=== PATIENT | male | born 1990 | race African-American/Black ===

== ENCOUNTER 2017-08-06 12:21 | Emergency (ER) | payer SELFPAY | END 2017-08-06 13:25 | disposition home or self-care (01) | LOC: ERS 12:21 | DX: B35.3 Tinea pedis (principal); F17.210 Nicotine dependence, cigarettes, uncomplicated | CPT/HCPCS: 99283 ==

== ENCOUNTER 2018-08-10 11:19 | Emergency (ER) | payer OTHER, SELFPAY ==
--- NOTE | 2018-08-10 11:55 | RAD ---
RIGHT HAND 3 VIEWS: HISTORY: Right hand injury. FINDINGS: Joint spaces are preserved. No acute fracture or dislocation. IMPRESSION: No acute osseous abnormalities are demonstrated. POS: ERIC
--- NOTE | 2018-08-10 11:57 | RAD ---
RIGHT WRIST 3 VIEWS: HISTORY: Injury. COMPARISON: Right hand 07/06/2016. FINDINGS: No acute displaced fracture or malalignment. Mild positive ulnar variance may be positional. IMPRESSION: No acute fracture or malalignment. POS: ERIC
== END 2018-08-10 12:30 | disposition home or self-care (01) ==
LOC: ERS 11:19
DX: S63.91XA Sprain of unspecified part of right wrist and hand, initial encounter (principal); R20.2 Paresthesia of skin; F17.210 Nicotine dependence, cigarettes, uncomplicated; W22.8XXA Striking against or struck by other objects, initial encounter

== ENCOUNTER 2018-11-25 13:09 | Emergency (ER) | payer SELFPAY | END 2018-11-25 14:30 | disposition left against medical advice (07) | LOC: ERS 13:09 | DX: Z53.21 Procedure and treatment not carried out due to patient leaving prior to being seen by health care provider (principal) ==

== ENCOUNTER 2019-01-01 16:27 | Emergency (ER) | payer SELFPAY | END 2019-01-01 17:55 | disposition home or self-care (01) | LOC: ERS 16:27 | DX: J02.9 Acute pharyngitis, unspecified (principal); F17.210 Nicotine dependence, cigarettes, uncomplicated; I10 Essential (primary) hypertension | CPT/HCPCS: 87081; 87430; 99283 ==

== ENCOUNTER 2019-01-16 21:08 | Emergency (ER) | payer SELFPAY ==
[2019-01-16] MEDS ORDERED: Ketorolac Tromethamine 30 MG/ML VIAL ONE (22:18)
== END 2019-01-16 22:50 | disposition home or self-care (01) ==
LOC: ERS 21:08
DX: R10.9 Unspecified abdominal pain (principal); I10 Essential (primary) hypertension; F17.210 Nicotine dependence, cigarettes, uncomplicated; F31.9 Bipolar disorder, unspecified
CPT/HCPCS: 96372; J1885

== ENCOUNTER 2020-08-29 17:32 | Emergency (ER) | payer SELFPAY ==
[2020-08-29] MEDS ORDERED: Ibuprofen 800 MG TAB ONE (17:57)
== END 2020-08-29 18:04 | disposition home or self-care (01) ==
LOC: ERS 17:32
DX: K64.4 Residual hemorrhoidal skin tags (principal); I10 Essential (primary) hypertension; F17.210 Nicotine dependence, cigarettes, uncomplicated
CPT/HCPCS: 99283

== ENCOUNTER 2020-09-03 20:39 | Inpatient (IN) | payer OTHER, SELFPAY ==
[~2020-09-03 20:39] MED LIST: Iopamidol 370 76% 100 ML VIAL ONE
[2020-09-03] MEDS ORDERED: Clindamycin/D5W 900 mg/50 ml Premix Bag ONE (21:26)
[2020-09-03] MEDS ORDERED: Ketorolac Tromethamine 30 MG/ML VIAL ONE (21:26)
[2020-09-03 21:54] LABS: #Basophils 0.1 thou/uL (0.0-0.2); #Eosinphils 0.2 thou/uL (0.0-0.7); #Lymphocytes 2.4 thou/uL (1.20-3.40); #Monocytes 1.8 thou/uL (0.11-0.59); #Neutrophils 13.2 thou/uL (1.40-6.50); %Basophils 0.5 % (0.0-1.0); %Eosinophils 1.1 % (0.0-10.0); %Lymphocytes 13.5 % (21.0-51.0); %Monocytes 10.3 % (0.0-10.0); %Neutrophils 74.6 % (42.0-75.0); Hemoglobin 13.6 g/dL (14.0-18.0); Mean Corpuscular HGB CONC 32.4 g/dL (32.0-36.0); Mean Corpuscular Volume 92.6 fL (78.0-98.0); Mean Platelet Volume 7.1 fL (7.4-10.4); Platelet Count 494 thou/uL (130-400); RBC Distribution Width 12.5 % (11.5-14.5); Red Blood Cell (RBC) Count 4.53 mill/uL (4.70-6.10); White Blood Cell (WBC) Count 17.6 thou/uL (4.8-10.8)
--- NOTE | 2020-09-03 22:03 | CT ---
CT OF THE PELVIS WITH IV CONTRAST INDICATION: History of possible rectal abscess with complaints of bleeding in the rectal area and hem orrhoids COMPARISON: None FINDINGS: Pelvis: Small and large bowel: There is a mild amount retained stool within the visualized colon. Appendix:Normal Bladder: Normal. Rectal and perirectal soft tissues:There is a multiloculated, septated, peripherally enhancing hypode nse lesion involving the anterior and left anterior wall of the rectum, extending into the left and central aspect of the prostate suspicious for large rectal abscess with local extension. The lesion m easures 5.2 x 4.2 x 6.1 cm in its greatest AP, mediolateral and craniocaudad dimensions respectively. Reproductive structures: As above Free fluid in pelvis: There is mild free fluid in the pelvis. Lymphadenopathy pelvis: Few mildly prominent lymph nodes are seen within the presacral region and spring ng the left internal iliac vasculature. Largest is seen 19 series 4 measuring 6 mm. Osseous structures: No acute osseous abnormality. No destructive osteolytic or osteoblastic lesion i s identified. There is scattered degenerative and osteoarthritic changes. Soft tissues:Normal. IMPRESSION: 1. Multiloculated, septated, peripherally enhancing hypodense lesion involving the anterior left ante rior wall the rectum extending into the left and central aspect of the prostate suspicious for large rectal abscess with local extension. Surgical consultation is recommended. Malignancy is felt t o be less likely but is not entirely excluded. 2. A few mildly prominent lymph nodes within the presacral region and along the left internal iliac v asculature.
[2020-09-03 22:11] LABS: ALT (SGPT) 32 U/L (8-55); AST (SGOT) 24 U/L (5-34); Albumin 4.3 g/dL (3.5-5.0); Alkaline Phosphatase 111 U/L (40-110); Anion Gap 15 mmol/L (10-20); BUN (Urea Nitrogen) 11 mg/dL (8.9-20.6); Bilirubin, Total 0.2 mg/dL (0.2-1.2); Calc. Creatinine Clearance 0 mL/min (70-130); Calcium 9.9 mg/dL (7.8-10.44); Carbon Dioxide 28 mmol/L (22-29); Chloride 98 mmol/L (98-107); Estimated GFR-MDRD Greater than 90; Globulin 4.3 g/dL (2.4-3.5); Glucose 95 mg/dL (70-105); Protein, Total 8.6 g/dL (6.0-8.3); Sodium 137 mmol/L (136-145)
[2020-09-03] MEDS ORDERED: Piperacillin/Tazobactam 4.5 GM VIAL ONE (22:29)
[2020-09-03] MEDS ORDERED: metroNIDAZOLE 500 MG/100 ML BAG ONE (22:29)
[2020-09-03 22:54] LABS: Bilirubin Negative (Negative); Blood, Urine Negative (Negative); Clarity Clear (Clear); Glucose, Urine (Dipstick) Normal (Negative); Ketone, Urine Negative (Negative); Leukocyte 250 Leu/uL (Negative); Nitrite Negative (Negative); Protein, Urine (Dipstick) 10 mg/dL (Neg-Trace); Squamous Epithelial None Seen HPF (0-3); Urobilinogen Normal mg/dL (Less than 2); WBC/HPF Greater than 50 HPF (0-3); pH, Urine 7.5 (5.0-9.0)
[2020-09-03 23:00] LABS: Bacteria/HPF Rare-Few HPF (None Seen)
[2020-09-04] MEDS ORDERED: Ondansetron PF 4 MG/2 ML Vial IVP PRN (01:30)
[2020-09-04] MEDS ORDERED: Ondansetron ODT 4 MG TAB SL PRN (01:30)
[2020-09-04] MEDS: D5 1/2 NS w/20 mEq KCL 1,000 ML IV SCH ×2 (01:40→09:51)
[2020-09-04 01:46] VITALS: BMI 24.7
[2020-09-04] MEDS ORDERED: Senokot S 8.6-50 MG TAB PO PRN (03:12)
[2020-09-04] MEDS ORDERED: Bisacodyl 10 MG SUPP PR PRN (03:12)
[2020-09-04] MEDS ORDERED: Acetaminophen 325 MG TAB PO PRN (03:12)
[2020-09-04] MEDS ORDERED: Acetaminophen 650 MG Suppository PR PRN (03:12)
--- NOTE | 2020-09-04 03:42 | PDOC.HHP ---
Hospitalist HPI - History of Present Illness History of Present Illness: ADMISSION DATE: 09/04/2020 TIME OF ASSESSMENT: 0200 PRIMARY CARE PHYSICIAN: None CHIEF COMPLAINT: Rectal pain and bleeding HPI: Patient presents to the emergency department today with complaints of rectal pain and bleeding. The patient states everything started 2 weeks ago when he had significant straining while having a bowel movement after which he felt a small bulge in the rectum which he attributed to a hemorrhoid. Patient states that he felt discomfort when walking and had gone in for medical evaluation. He was told he had hemorrhoids and was prescribed topical medicine however patient was taken to [facility] straight from the doctor's office. He eventually saw the [facility] nurse while incarcerated and was prescribed hemorrhoid cream. Also given stool softeners which helped to lessen the pain when having a bowel movement. Patient reports having a bowel movement 1 day and feeling as if something popped which then caused immediate relief and he was able to walk is normal. He continued with stool softeners and daily cleansing of the perirectal area. He had been given mid pads with which he is well which he states helped significantly. Eventually he began to note purulent drainage on the pads. For the last week he has been unable to have a bowel movement and today he developed abdominal cramping. While sitting on the toilet today he felt a significant bulge in the rectal area after wiping. States he did not pas s any stool but had a significant amount of pain and a significant amount of blood. Since arriving to the emergency department his pain has improved. It was initially 7 out of 10 in severity and is now a 0 out of 10. He feels like the pressure has been relieved. Reports having fevers and chills since 4 to 5 days ago. All other review of systems are negative. ED COURSE: In the emergency department he underwent an EKG that showed a normal sinus rhythm. Laboratory studies done showed a white count of 17.6, hemoglobin 13.6, hematocrit 42, platelets 494, neutrophils 74.6% BUN 11, creatinine 1.03, GFR greater than 90, alk phos 111, LFTs normal. Lactic acid 1.5. Glucose 95 Urinalysis showed 250 leukocyte esterase, 4-6 red blood cells and greater than 50 white blood cells. Negative for bacteria and nitrites. CT imaging of the pelvis demonstrated a multiloculated septated peripherally enhancing hypodense lesion involving the anterior left wall of the rectum extending into the left and central aspect of the prostate suspicious for large rectal abscess with local extension. Malignancy felt to be less likely but not entirely excluded. Few mildly prominent lymph nodes within the presacral region and along the left internal iliac vasculature present. Patient was started on IV antibiotics with Zosyn, clindamycin and metronidazole. He received IV fluids and for his pain was given Toradol 30 mg IV x1. PAST MEDICAL HISTORY: 1. Chronic constipation PAST SURGICAL HISTORY: None. SOCIAL HISTORY: Previous smoker. Denies any heavy alcohol use or drug use. FAMILY HISTORY: Noncontributory ALLERGIES: No known drug allergy CURRENT MEDICATIONS: Ibuprofen as needed for pain - Exam General Appearance: NAD, awake alert General - other findings: Vital signs temp 98.2, HR 88, RR 18, O2 sat 98% on room air, BP 133/83 Eye: PERRL, anicteric sclera ENT: normocephalic atraumatic, moist mucosa ENT - other findings: poor dentition Neck: supple Heart: RRR, no murmur, no gallops, normal peripheral pulses Respiratory: CTAB, no wheezes, no rales, no ronchi, normal chest expansion Gastrointestinal: soft, non-tender, non-distended, normal bowel sounds, no guarding, no rigidity Gastrointestinal - other findings: Rectal area notable for purulent drainage Extremities: no edema Skin: normal turgor, no rashes Neurological: cranial nerve grossly intact, normal sensation to touch, no weakness Musculoskeletal: normal tone, normal strength, no muscle wasting Psychiatric: normal affect, normal behavior, A&O x 3 Hospitalist Results - Labs Result Diagrams: 09/03/20 21:26 09/03/20 21:26 Lab results: WBC 17.6 thou/uL (4.8-10.8) H 09/03/20 21: Hgb 13.6 g/dL (14.0-18.0) L 09/03/20 21: Hct 42.0 % (42.0-52.0) 09/03/20 21: MCV 92.6 fL (78.0-98.0) 09/03/20 21: Plt Count 494 thou/uL (130-400) H 09/03/20 21: Neutrophils % 74.6 % (42.0-75.0) 09/03/20 21:26 Sodium 137 mmol/L (136-145) 09/03/20 21:26 Potassium 4.0 mmol/L (3.5-5.1) 09/03/20 21:26 Chloride 98 mmol/L (98-107) 09/03/20 21:26 Carbon Dioxide 28 mmol/L (22-29) 09/03/20 21:26 BUN 11 mg/dL (8.9-20.6) 09/03/20 21:26 Creatinine 1.03 mg/dL (0.7-1.3) 09/03/20 21:26 Glucose 95 mg/dL (70-105) 09/03/20 21:26 Lactic Acid 1.5 mmol/L (0.5-2.2) 09/03/20 21: Calcium 9.9 mg/dL (7.8-10.44) 09/03/20 21:26 Total Bilirubin 0.2 mg/dL (0.2-1.2) 09/03/20 21:26 AST 24 U/L (5-34) 09/03/20 21:26 ALT 32 U/L (8-55) 09/03/20 21:26 Alkaline Phosphatase 111 U/L (40-110) H 09/03/20 21:26 Serum Total Protein 8.6 g/dL (6.0-8.3) H 09/03/20 21:26 Albumin 4.3 g/dL (3.5-5.0) 09/03/20 21:26 Urine Ketones Negative mg/dL (Negative) 09/03/20 22:07 Urine Blood Negative (Negative) 09/03/20 22:07 Urine Nitrite Negative (Negative) 09/03/20 22:07 Ur Leukocyte Esterase 250 Pallavi/uL (Negative) A 09/03/20 22:07 Urine RBC 4-6 HPF (0-3) A 09/03/20 22:07 Urine WBC Greater than 50 HPF (0-3) A 09/03/20 22:07 Ur Squamous Epith Cells None Seen HPF (0-3) 09/03/20 22:07 Urine Bacteria Rare-Few HPF (None Seen) 09/03/20 22:07 - Radiology Interpretation CT scan - pelvis Status: report reviewed by al Hospitalist H&P A/P - Problem (1) Rectal abscess Status: Acute (2) Rectal pain Code(s): K62.89 - OTHER SPECIFIED DISEASES OF ANUS AND RECTUM Status: Acute (3) Lower GI bleeding Code(s): K92.2 - GASTROINTESTINAL HEMORRHAGE, UNSPECIFIED Status: Acute (4) Abdominal cramping Code(s): R10.9 - UNSPECIFIED ABDOMINAL PAIN Status: Acute (5) Constipation, chronic Code(s): K59.09 - OTHER CONSTIPATION Status: Chronic - Plan Plan: Continue IV antibiotics. Monitor H/H. Continue stool softeners. General surgery consulted. NPO while awaiting surgical review. Continue Toradol PRN for pain. Repeat labs including lactic acid in the AM. GI Prophylaxis with famotidine. DVT Prophylaxis with mechanical SCDs. CODE STATUS: FULL Case discussed with attending who agrees with plan as above.
[2020-09-04] MEDS: Ketorolac Tromethamine 30 MG/ML VIAL IVP SCH ×3 (05:58→21:08)
[2020-09-04] MEDS: Piperacillin/Tazobactam 4.5 GM in Sodium Chloride 0.9% 100 ML IVPB SCH ×3 (05:58→21:48)
[2020-09-04 06:14] LABS: #Basophils 0.1 thou/uL (0.0-0.2); #Eosinphils 0.2 thou/uL (0.0-0.7); #Lymphocytes 2.8 thou/uL (1.20-3.40); #Monocytes 2.3 thou/uL (0.11-0.59); #Neutrophils 10.1 thou/uL (1.40-6.50); %Basophils 0.4 % (0.0-1.0); %Eosinophils 1.5 % (0.0-10.0); %Lymphocytes 18.1 % (21.0-51.0); %Monocytes 14.7 % (0.0-10.0); %Neutrophils 65.3 % (42.0-75.0); Hemoglobin 12.2 g/dL (14.0-18.0); Mean Corpuscular HGB CONC 33.6 g/dL (32.0-36.0); Mean Corpuscular Hemoglobin 31.1 pg (27.0-31.0); Mean Corpuscular Volume 92.5 fL (78.0-98.0); Mean Platelet Volume 6.7 fL (7.4-10.4); Platelet Count 417 thou/uL (130-400); RBC Distribution Width 12.4 % (11.5-14.5); Red Blood Cell (RBC) Count 3.94 mill/uL (4.70-6.10); White Blood Cell (WBC) Count 15.5 thou/uL (4.8-10.8)
[2020-09-04 06:47] LABS: Anion Gap 14 mmol/L (10-20); BUN (Urea Nitrogen) 9 mg/dL (8.9-20.6); Calc. Creatinine Clearance 137 mL/min (70-130); Calcium 8.3 mg/dL (7.8-10.44); Carbon Dioxide 25 mmol/L (22-29); Chloride 105 mmol/L (98-107); Estimated GFR-MDRD Greater than 90; Glucose 89 mg/dL (70-105); Potassium 3.7 mmol/L (3.5-5.1); Sodium 140 mmol/L (136-145)
[2020-09-04] MEDS ORDERED: metroNIDAZOLE 500 MG in Premix Bag 1 BAG IVPB SCH (07:00)
[2020-09-04] MEDS: Famotidine 20 MG TAB PO SCH ×2 (08:45→21:08)
[2020-09-04] MEDS ORDERED: Famotidine 20 MG TAB PO SCH (09:00)
[2020-09-04] MEDS ORDERED: PROPOFOL 200 MG/20 ML VIAL ONE (10:35)
[2020-09-04] MEDS ORDERED: Lidocaine 1% PF 5 ML VIAL ONE (10:35)
[2020-09-04] MEDS ORDERED: Dexamethasone 20 MG/5 ML VIAL ONE (10:35)
[2020-09-04] MEDS ORDERED: Rocuronium Bromide 10 MG/ML (10ML VIAL) ONE (10:35)
[2020-09-04] MEDS ORDERED: Glycopyrrolate 0.2 MG/ML 5 ML SYRINGE ONE (10:35)
[2020-09-04] MEDS ORDERED: Fentanyl 250 MCG/5 ML VIAL ONE (12:02)
[2020-09-04] MEDS ORDERED: Lidocaine 2% Jelly 5 ML TUBE ONE (12:07)
[2020-09-04] MEDS ORDERED: Lidocaine 2% PF 5 ML VIAL ONE (12:07)
[2020-09-04] MEDS ORDERED: Bupivacaine/Epinephrine 0.25% 30 ML VIAL ONE (12:07)
[2020-09-04] MEDS ORDERED: Midazolam HCl 2 mg/2 ml Vial ONE (12:44)
[2020-09-04] MEDS ORDERED: Ondansetron HCl/PF 4 MG/2 ML Vial IVP PRN (13:37)
[2020-09-04] MEDS ORDERED: HYDROmorphone 2 MG/ML VIAL SLOW IVP PRN (13:37)
[2020-09-04] MEDS ORDERED: Promethazine HCl 25 MG/ML VIAL SLOW IVP PRN (13:37)
[2020-09-04] MEDS ORDERED: Promethazine HCl 25 MG/ML VIAL IM PRN (13:37)
--- NOTE | 2020-09-04 13:45 | PDOC.GSCN ---
Surgery Consult: HPI - Consult details Date: 09/04/20 Time: 09:00 Reason for consult: other (Perirectal abscess) History of present illness: 09/04/20 13:44 29-year-old male presented to the emergency department with perianal pain. The patient states that he has had 2 weeks of perianal pain. This is been associated with bleeding. He saw an outside clinic and was diagnosed with hemorrhoids and prescribed a topical cream. He was then incarcerated, and presented to the [facility], where he was also diagnosed with hemorrhoids and prescribed more topical cream. He then noted purulent discharge with prompted his transport to the emergency department. He endorses a history of constipation. He rates the pain a 7 out of 10 on a pain scale, but that has improved since it started draining. He does endorse fevers and chills. Surgery Consult: ROS - Review of Systems All systems: 10 systems reviewed and no additional complaints unless stated below. Surgery Consult: [facility] Past Medical History: Denies Past Surgical History: Denies - Past Family History Pertinent family history: Denies - Past Social History Smoking Status: Former smoker Alcohol Use: none Drug Use History: none Living Situation: other (Incarcerated) Surgery Consult: Exam - Vital signs Vital signs: Vital Signs - Most Recent Temp Pulse Resp BP Pulse Ox 98.2 F 86 20 124/66 99 09/04/20 08:07 09/04/20 08:07 09/04/20 08:07 09/04/20 08:07 09/04/20 08:07 - Physical Exam General: moderate distress, no distress, severe distress, well developed, well nourished ENT: no congestion, no hearing loss, normal mucosa, normal nares, normal pinna, other (Poor dentition) Neck: no bruits, no lymphadectomy, no masses, no bashir distention, trachea midline Respiratory: clear to auscultation, clear to percussion, normal expansion, normal respiratory effort Abdomen: soft, tender Genitourinary (Male): normal penis with no external lesions, testicles non- tender, testicles present Rectum: other (Tenderness to palpation in the 1 o'clock position with fluctuance and purulent drainage.) Hemorrhoids: moderate Integumentary: no abnormal pigmentation, no growths, no rash Neurologic: normal coordination, normal sensation Musculoskeletal: normal gait, normal posture Surgery Consult: Meds - Medications Medications: Current Medications Acetaminophen (Acetaminophen 325 Mg Tab) 650 mg PO Q4H PRN PRN Reason: Headache/Fever/Mild Pain (1-3) Acetaminophen (Acetaminophen 650 Mg Suppository) 650 mg GA Q4H PRN PRN Reason: Headache/Fever/Mild Pain (1-3) Bisacodyl (Bisacodyl 10 Mg Supp) 10 mg GA DAILYPRN PRN PRN Reason: Constipation Famotidine (Famotidine 20 Mg Tab) 20 mg PO BID [facility] Last Admin: 09/04/20 08:45 Dose: 20 mg Documented by: Famotidine (Famotidine 20 Mg Tab) 20 mg PO BID [facility] Last Admin: 09/04/20 08:45 Dose: Not Given Documented by: Fentanyl (Fentanyl 100 Mcg/2 Ml Amp) 50 mcg SLOW IVP Q10MIN PRN PRN Reason: Moderate to Severe Pain (6-10) Stop: 09/04/20 16:37 Hydromorphone HCl (Hydromorphone 2 Mg/Ml Vial) 0.5 mg SLOW IVP Q10MIN PRN PRN Reason: Moderate to Severe Pain (6-10) Stop: 09/04/20 16:37 Piperacillin Sod/Tazobactam (Sod 4.5 gm/ Sodium Chloride) 100 mls @ 200 mls/hr IVPB Q8HR [facility] Last Admin: 09/04/20 05:58 Dose: 100 mls Documented by: Influenza Virus Vaccine Quadrival (Flu Vacc [id number](6mos Up)/Pf 60 Mcg/0.5 Ml Syringe) 60 mcg IM .ONCE ONE Stop: 09/04/20 21:01 Ketorolac Tromethamine (Ketorolac Tromethamine 30 Mg/Ml Vial) 15 mg IVP Q6HR [facility] Stop: 09/09/20 06:01 Last Admin: 09/04/20 11:20 Dose: Not Given Documented by: Ondansetron HCl (Ondansetron Hcl/Pf 4 Mg/2 Ml Vial) 4 mg IVP ONE PRN PRN Reason: Nausea/Vomiting Stop: 09/04/20 16:37 Promethazine HCl (Promethazine Hcl 25 Mg/Ml Vial) 6.25 mg SLOW IVP ONE PRN PRN Reason: Nausea/Vomiting Stop: 09/04/20 16:37 Promethazine HCl (Promethazine Hcl 25 Mg/Ml Vial) 6.25 mg IM ONE PRN PRN Reason: Nausea/Vomiting Stop: 09/04/20 16:37 Senna/Docusate Sodium (Senokot S 8.6-50 Mg Tab) 2 tab PO BID PRN PRN Reason: Constipation Sodium Chloride (Flush - Normal Saline 10 Ml Syringe) 10 ml IVF Q12HR PRN PRN Reason: Saline Flush Sodium Chloride (Flush - Normal Saline 10 Ml Syringe) 10 ml IVF PRN PRN PRN Reason: Saline Flush - Allergies Allergies/Adverse Reactions: Allergies Allergy/AdvReac Type Severity Reaction Status Date / Time No Known Drug Allergies Allergy Unknown Verified 09/04/20 01:38 Surgery Consult: Results - Labs Result Diagrams: 09/04/20 05:45 09/04/20 05:45 Lab results: Laboratory Results WBC 15.5 thou/uL (4.8-10.8) H 09/04/20 05:45 RBC 3.94 mill/uL (4.70-6.10) L 09/04/20 05:45 Hgb 12.2 g/dL (14.0-18.0) L 09/04/20 05:45 Hct 36.4 % (42.0-52.0) L 09/04/20 05:45 MCV 92.5 fL (78.0-98.0) 09/04/20 05:45 MCH 31.1 pg (27.0-31.0) H 09/04/20 05:45 MCHC 33.6 g/dL (32.0-36.0) 09/04/20 05:45 RDW 12.4 % (11.5-14.5) 09/04/20 05:45 Plt Count 417 thou/uL (130-400) H 09/04/20 05:45 MPV 6.7 fL (7.4-10.4) L 09/04/20 05:45 Neutrophils % 65.3 % (42.0-75.0) 09/04/20 05:45 Lymphocytes % 18.1 % (21.0-51.0) L 09/04/20 05:45 Monocytes % 14.7 % (0.0-10.0) H 09/04/20 05:45 Eosinophils % 1.5 % (0.0-10.0) 09/04/20 05:45 Basophils % 0.4 % (0.0-1.0) 09/04/20 05:45 Neutrophils # 10.1 thou/uL (1.40-6.50) H 09/04/20 05:45 Lymphocytes # 2.8 thou/uL (1.20-3.40) 09/04/20 05:45 Monocytes # 2.3 thou/uL (0.11-0.59) H 09/04/20 05:45 Eosinophils # 0.2 thou/uL (0.0-0.7) 09/04/20 05:45 Basophils # 0.1 thou/uL (0.0-0.2) 09/04/20 05:45 Sodium 140 mmol/L (136-145) 09/04/20 05:45 Potassium 3.7 mmol/L (3.5-5.1) 09/04/20 05:45 Chloride 105 mmol/L (98-107) 09/04/20 05:45 Carbon Dioxide 25 mmol/L (22-29) 09/04/20 05:45 Anion Gap 14 mmol/L (-20) 09/04/20 05:45 BUN 9 mg/dL (8.9-20.6) 09/04/20 05:45 Creatinine 0.84 mg/dL (0.7-1.3) 09/04/20 05:45 Estimated GFR (MDRD) Greater than 90 09/04/20 05:45 Glucose 89 mg/dL (70-105) 09/04/20 05:45 Lactic Acid 1.5 mmol/L (0.5-2.2) 09/03/20 21:26 Calcium 8.3 mg/dL (7.8-10.44) 09/04/20 05:45 Total Bilirubin 0.2 mg/dL (0.2-1.2) 09/03/20 21:26 AST 24 U/L (5-34) 09/03/20 21:26 ALT 32 U/L (8-55) 09/03/20 21:26 Alkaline Phosphatase 111 U/L (40-110) H 09/03/20 21:26 Serum Total Protein 8.6 g/dL (6.0-8.3) H 09/03/20 21: Albumin 4.3 g/dL (3.5-5.0) 09/03/20 21: Globulin 4.3 g/dL (2.4-3.5) H 09/03/20 21: Albumin/Globulin Ratio 1.0 g/dL (1.2-2.2) L 09/03/20 21:26 Urine Color Light-Yellow (Yellow) 09/03/20 22:07 Urine Clarity Clear (Clear) 09/03/20 22: Urine pH 7.5 (5.0-9.0) 09/03/20 22:07 Ur Specific [place] 1.040 (1.002-1.036) H 09/03/20: Urine Protein 10 mg/dL (Neg-Trace) 09/03/20 22: Urine Glucose (UA) Normal mg/dL (Negative) 09/03/20 22: Urine Ketones Negative mg/dL (Negative) 09/03/20 22:07 Urine Blood Negative (Negative) 09/03/20 22: Urine Nitrite Negative (Negative) 09/03/20: Urine Bilirubin Negative (Negative) 09/03/20: Urine Urobilinogen Normal mg/dL (Less than 2) 09/03/20 22:07 Ur Leukocyte Esterase 250 Pallavi/uL (Negative) A 09/03/20:07 Urine RBC 4-6 HPF (0-3) A 09/03/20:07 Urine WBC Greater than 50 HPF (0-3) A 09/03/20:07 Ur Squamous Epith Cells None Seen HPF (0-3) 09/03/20:07 Urine Bacteria Rare-Few HPF (None Seen) 09/03/20 22:07 - Radiology Interpretation CT scan - abdomen Additional comments: Demonstrates a 5 cm x 4 cm x 6 cm perirectal abscess on the patient's left side. Mild lymphadenopathy. Surgery Consult: A/P - Problem (1) Rectal abscess Current Visit: Yes Status: Acute - Plan Plan: Plan for incision and drainage, with likely drain placement, of perirectal abscess. The relative risks and benefits of this procedure were discussed in detail with the patient, specifically addressing the risk of infection, sphincter damage and incontinence, and recurrence. Informed consent was obtained.
[2020-09-04] MEDS ORDERED: Fentanyl 100 MCG/2 ML VIAL ONE (13:50)
--- NOTE | 2020-09-04 13:52 | PDOC.OP ---
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 PROCEDURE IN DETAIL: The patient was brought to the operating room and positioned in low lithotomy on the operating room table. After induction of general anesthesia, the patient was prepared and draped in the usual fashion. Prior to beginning the procedure, a complete timeout was performed with all members of the operative team being present and in agreement. A digital rectal exam was performed with no evidence of bulging or a rectal component of the abscess. There was a perianal fistula palpated at the 1 o'clock position. A small drainage site was noted at the fluctuant part of the perirectal abscess. This was further opened with hemostats. Examination revealed an intersphincteric fistula with associated abscess. Gentle probing was performed digitally to break up all loculations. The fistulous tract was identified and a draining seton placed. The abscess cavity was copiously irrigated and packed with iodoform gauze. At the conclusion of the case, all sponge and instrument counts were correct. ESTIMATED BLOOD LOSS: Minimal COMPLICATIONS: None INTRAOPERATIVE BLOOD TRANSFUSIONS: None GRAFTS / IMPLANTS: None SPECIMENS: None DISPOSITION: The patient was transported to the postoperative recovery unit in good conditions to be to be returned to the floor when criteria met.
[2020-09-04] MEDS ORDERED: Meperidine HCl/PF 25 MG/ML VIAL ONE (13:55)
[2020-09-04] MEDS ORDERED: Piperacillin/Tazobactam 4.5 GM VIAL ONE (14:30)
[2020-09-04] MEDS: Chloraseptic Spray 180 ml Bottle PO PRN (17:53)
[2020-09-04] MEDS: Cepastat Lozenges 1 LOZ PO PRN (17:54)
[2020-09-04] MEDS ORDERED: FLU VACC QS2020-21(6MOS UP)/PF 60 MCG/0.5 ML SYRINGE IM ONE (21:00)
[2020-09-05] MEDS: Ketorolac Tromethamine 30 MG/ML VIAL IVP SCH ×3 (02:22→13:48)
[2020-09-05] MEDS: Chloraseptic Spray 180 ml Bottle PO PRN (06:02)
[2020-09-05] MEDS: Piperacillin/Tazobactam 4.5 GM in Sodium Chloride 0.9% 100 ML IVPB SCH ×2 (06:02→14:15)
[2020-09-05] MEDS: Cepastat Lozenges 1 LOZ PO PRN (06:02)
--- NOTE | 2020-09-05 07:20 | PDOC.HOSPP ---
- Subjective Encounter Date: 09/05/20 Encounter Time: 07:16 Subjective: Patient seen and examined. No new complaints. No overnight events. POD#1 I&D. Reports mild to moderate pain at surgical site when rolling over or pressure applied. Says pain is well controlled. He is feeling much better. No fevers. Denies chills. Denies chest pain, SOB, nausea, vomiting or abdominal pain. - Objective Vital Signs & Weight: Vital Signs (12 hours) Temp Pulse Resp BP Pulse Ox 09/05/20 04:22 98.9 F 67 18 103/59 L 98 09/05/20 00:19 98 F 60 18 104/55 L 98 09/04/20 20:35 97.2 F L 66 18 121/72 100 Weight Weight 167 lb 9.6 oz I&O: 09/04/20 09/05/20 09/06/20 07:59 06:59 06:59 Intake Total Output Total Balance Result Diagrams: 09/04/20 05:45 09/04/20 05:45 Hospitalist ROS - Review of Systems Constitutional: denies: fever, chills Respiratory: denies: cough, shortness of breath Gastrointestinal: denies: nausea, vomiting, abdominal pain, constipation, melena, hematochezia Genitourinary: denies: dysuria, hematuria Neurological: denies: change in speech, confusion All other systems reviewed; all pertinent +/- noted in HPI/Subj - Medication Medications: Active Medications Generic Name Dose Route Start Last Admin Trade Name Freq PRN Reason Stop Dose Admin Acetaminophen 650 mg 09/04/20 03:12 09/04/20 21:07 Acetaminophen 325 Mg Tab PO 650 mg Q4H PRN Administration Headache/Fever/Mild Pain (1-3) Famotidine 20 mg 09/04/20 09:00 09/04/20 21:08 Famotidine 20 Mg Tab PO 20 mg BID KRISH Administration Piperacillin Sod/Tazobactam 100 mls @ 200 mls/hr 09/04/20 06:00 09/05/20 06:02 Sod 4.5 gm/ Sodium Chloride IVPB 100 mls Q8HR KRISH Administration Ketorolac Tromethamine 15 mg 09/04/20 20:00 09/05/20 02:22 Ketorolac Tromethamine 30 Mg/Ml Vial IVP 09/09/20 06:01 15 mg 0200,0800,1400,2000 KRISH Administration Phenol 0 ml 09/04/20 16:49 09/05/20 06:02 Chloraseptic [place] 180 Ml Bottle PO 1 spr QIDPRN PRN Administration THROAT PAIN Sodium Chloride 10 ml 09/04/20 03:12 09/05/20 02:23 Flush - Normal Saline 10 Ml Syringe IVF 10 ml PRN PRN Administration Saline Flush Throat Lozenges 1 joanna 09/04/20 16:49 09/05/20 06:02 Cepastat Lozenges 1 Joanna PO 1 joanna QIDPRN PRN Administration THROAT PAIN - Exam General Appearance: NAD, awake alert. negative: ill appearing Eye: anicteric sclera ENT: normocephalic atraumatic Neck: supple, symmetric Heart: RRR, no murmur, no gallops, no rubs, normal peripheral pulses Respiratory: CTAB, no wheezes, no rales, no ronchi, normal chest expansion Gastrointestinal: soft, non-tender, normal bowel sounds, no bruit, no guarding, no rigidity Gastrointestinal - other findings: Rectal sx site has packing, gauze scant blood Extremities: no cyanosis, no edema Musculoskeletal: normal tone, normal strength Psychiatric: normal affect, A&O x 3 Hosp A/P (1) Rectal abscess Status: Acute (2) Rectal pain Code(s): K62.89 - OTHER SPECIFIED DISEASES OF ANUS AND RECTUM Status: Acute (3) Abdominal cramping Code(s): R10.9 - UNSPECIFIED ABDOMINAL PAIN Status: Resolved (4) Lower GI bleeding Code(s): K92.2 - GASTROINTESTINAL HEMORRHAGE, UNSPECIFIED Status: Resolved (5) Constipation, chronic Code(s): K59.09 - OTHER CONSTIPATION Status: Chronic - Plan POD#1 - I&D by Dr. Murillo WBC 15.5, trending down Continue Zosyn IVPB Continue analgesia, stool softners, PPIs Continue Regular diet Clinical course per general surgery.
[2020-09-05] MEDS: Famotidine 20 MG TAB PO SCH (08:19)
[2020-09-05] MEDS ORDERED: Docusate 100 MG CAP PO SCH (09:00)
[2020-09-05] MEDS ORDERED: LIDOCAINE 4% Topical Sol 4 ML SOLN.PK.G. TP PRN (10:38)
[2020-09-05] MEDS ORDERED: Piperacillin/Tazobactam 4.5 GM VIAL ONE (14:15)
--- NOTE | 2020-09-05 17:19 | PDOC.BPN ---
- Brief Progress Note Encounter Date: 09/05/20 Doing well s/p incision and drainage of perirectal abscess with seton placement. Postoperative pain well controlled with current regimen. Tolerating regular diet, without nausea or vomiting. Endorses flatus and bowel movements. Ambulating independently. 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 Okay to discharge back to long-term Remove packing at 48 hours Follow-up in clinic 1 week for drain removal Recommend daily fiber therapy Okay to discontinue all antibiotics. No oral antibiotics needed at discharge.
[2020-09-05 19:50] VITALS: BP 137/88; TEMP 98.1
[2020-09-05 23:12] LABS: SARS-CoV-2 MS2 Positive; SARS-CoV-2 N Gene Negative; SARS-CoV-2 S Gene Negative; SARS-CoV-2 by NAA Not Detected (Not Detected); SARS-CoV-2 orf1ab Negative
--- NOTE | 2020-09-06 10:18 | DIS ---
DATE OF ADMISSION: 09/03/2020 DATE OF DISCHARGE: 09/05/2020 PRIMARY CARE PHYSICIAN: None. DIAGNOSES: 1. Rectal abscess. 2. Rectal pain. 3. Abdominal cramping. 4. Lower gastrointestinal bleeding. 5. Constipation, chronic. CONDITION: Stable. I have examined the patient on the day of discharge. Vital signs are stable. Denies any chest pain, heart palpitations, or shortness of breath. No hematochezia or melena. S1 and S2 auscultated. Lungs clear bilaterally. CONSULTS: General Surgery, Dr. Murillo. HOSPITAL COURSE: The patient is a 29-year-old male with a history of constipation, who was recently incarcerated, who presented to the emergency department for complaints of rectal pain and bleeding. CT of the pelvis demonstrated a multiloculated septated peripheral enhancing hypodense lesion involving the anterior left wall of the rectum extending into the left and central aspect of the prostate suspicious for large rectal abscess with local extension. The patient's WBCs were 17.6, lactic acid was 1.5. The patient was placed on IV antibiotics, Zosyn, clindamycin, and metronidazole in the ER. General Surgery was consulted. The patient went for an incision and drainage with Dr. Murillo on 09/04/2020. A seton drain was placed, and the wound was packed with iodoform gauze. The patient was continued on Zosyn, IV antibiotics postop. The patient's white count improved down to 15.5. At 48 hours, blood and urine culture showed no growth. General Surgery recommended discharge with recommendations for stool softeners and fiber diet. No antibiotics necessary. Follow up for drain removal in 1 week. MEDICATIONS AT DISCHARGE: 1. Colace daily, OTC medication. 2. FiberCon or Metamucil OTC daily. FOLLOWUP: Follow up with General Surgery, Dr. Murillo, in 7 days for drain removal. DIET: Fiber diet. ACTIVITY: As tolerated. DISPOSITION: [facility]. TIME SPENT ON DISCHARGE: 20 minutes. Job ID: [id number]
--- NOTE | 2020-09-08 05:15 | PQF ---
CLINICAL DOCUMENTATION CLARIFICATION FORM: Dear : Jaron Murillo Date / Time: 09/08/20513 Please exercise your independent, professional judgment in responding to the clarification form. Clinical indicators are provided on the bottom of this form for your review Please check appropriate box(es) to clarify if the following diagnosis has been ruled in our ruled out: Sepsis [ ] Ruled in diagnosis [ ] Continue to treat [ ] Resolved [ x ] Ruled out diagnosis [ ] Improving [ ] Cannot rule out diagnosis [ ] Other diagnosis [ ] Unable to determine Physician Signature: Date/Time: For continuity of documentation, please document condition throughout progress notes and discharge summary. Thank You. To be completed by CDI/Coding staff for physician review: Present Clinical Indicators - Signs / Symptoms / Labs Results and Location in Medical Record [X] BP 133/83, Pulse 88, Resp 18, Temp 98.2 Vital signs 09/03 [X] WBC 17.6, Plt count 494, Neutrophils 74.6, Lactic acid 1.5 Laboratory 09/03 [X] Blood culture: No growth in 48 hrs Microbiology 09/03 [X] Perirectal abscess with Sepsis ED notes p9 09/03 [X] Complaint of rectal pain and bleeding H&P p1 09/03 Mc PA-C Present Risk Factors Results and Location in Medical Record [X] Perirectal abscess ED notes p9 09/03 [X] Former smoker H&P p1 09/03 Mc PA-C [X] Rectal abscess H&P p1 09/03 Mc PA-C Present Treatments Results and Location in Medical Record [X] IVF NS 1L JAN 12 [X] IV Zosyn 4.5 gm JAN 12 [X] IV Metronidazole 500 mg JAN 12 [X] IV Clindamycin 900 mg JAN 12 [X] Blood culture Microbiology 09/03 [X] I&D Procedure Dr Murillo 09/04 CD[employer] Signature: Kaila Vitalsaran Phone #: [phone] Date/Time: 09/08/2020513 This is a permanent part of the Medical Record [facility]
== END 2020-09-05 19:10 | DRG 345 ==
LOC: ERS 20:39 → SURG A 22:53
PROVIDERS: ADMIT Surgery; ATTEND Surgery
PROC: 0D9P0ZZ Drainage of Rectum, Open Approach (ICD-10-PCS; principal; 2020-09-04)
PROC: 3E02340 Introduction of Influenza Vaccine into Muscle, Percutaneous Approach (ICD-10-PCS; 2020-09-04)
DX: K61.1 Rectal abscess (principal); K62.5 Hemorrhage of anus and rectum; Z20.828 Contact with and (suspected) exposure to other viral communicable diseases; K59.09 Other constipation; K64.9 Unspecified hemorrhoids; Z23 Encounter for immunization; Z87.891 Personal history of nicotine dependence
CPT/HCPCS: 36415; 72193; 80048; 80053; 81003; 81015; 83605; 85025; 87040; 87635; 90471; 90662; 93005; G0008; J1100; J1885; J2001; J2175; J2250; J2543; J2704; J3010; J3480; J3490; Q9967; U0003

== ENCOUNTER 2022-04-02 12:19 | Emergency (ER) | payer SELFPAY | END 2022-04-02 13:13 | disposition home or self-care (01) | LOC: ERS 12:19 | DX: N47.1 Phimosis (principal); I10 Essential (primary) hypertension; F17.210 Nicotine dependence, cigarettes, uncomplicated | CPT/HCPCS: 99283 ==

== ENCOUNTER 2024-05-05 02:23 | Emergency (ER) | payer OTHER | END 2024-05-05 03:53 | disposition home or self-care (01) | LOC: ERS 02:23 | DX: K02.9 Dental caries, unspecified (principal); K04.7 Periapical abscess without sinus; I10 Essential (primary) hypertension | CPT/HCPCS: 99282 ==

== ENCOUNTER 2024-12-01 04:49 | Emergency (ER) | payer OTHER, SELFPAY | END 2024-12-01 06:19 | disposition left against medical advice (07) | LOC: ERS 04:49 | DX: Z53.21 Procedure and treatment not carried out due to patient leaving prior to being seen by health care provider (principal) ==